=== PATIENT | female | born 1940 | race Caucasian/White ===

== ENCOUNTER 2021-03-17 12:41 | Emergency (ER) | payer OTHER ==
[~2021-03-17 12:41] MED LIST: ELAVIL25 MG PO; NORCO 5-325 TA1 EACH PO; PANTOPRAZOLE SO40 MG PO; ZANTAC150 MG PO
[2021-03-17] MEDS ORDERED: REMERON15 MG PO (13:41)
[2021-03-17 14:25] LABS: BILIRUBIN NEGATIVE (NEGATIVE); BLOOD TRACE-INTACT Ery/uL (NEGATIVE); CLARITY CLEAR (CLEAR); COLOR YELLOW (YELLOW); GLUCOSE (U) NORMAL (NORMAL); LEUKOCYTES 1+ Leu/uL (NEGATIVE); NITRITE NEGATIVE (NEGATIVE); PROTEIN TRACE (LOW) mg/dL (NEGATIVE); SPECIFIC GRAVITY >=1.030 (1.001-1.030); UROBILINOGEN 0.2 mg/dL (0.2-1.0); pH 5.5 (5.0-9.0)
[2021-03-17 14:33] LABS: URINARY RBC RARE
[2021-03-17 14:34] LABS: BACTERIA 2+
[2021-03-17 15:03] LABS: LACTIC ACID 1.4 mmol/L (0.4-1.9)
[2021-03-17 15:26] LABS: BASOPHIL 0.8 % (0-2); EOSINOPHIL 1.6 % (0-7); HCT 34.5 % (37.0-47.0); HGB 11.6 g/dl (12.5-16.0); LYMPHOCYTE 30.6 % (15-48); MCH 33.3 pg (25.0-31.0); MCHC 33.6 g/dL (32.0-36.0); MCV 99.1 fL (78.0-100.0); MONOCYTE 8.2 % (0-12); MPV 9.2 fL (6.0-9.5); NEUTROPHIL 58.5 % (41-80); NRBC 0; PLT 189 K/uL (150-400); RBC 3.48 M/uL (4.20-5.40); RDW 12.1 % (11.5-14.0); WBC 7.7 K/uL (4.0-10.5)
[2021-03-17 15:55] LABS: ALBUMIN 3.4 g/dL (3.4-5.0); BILIRUBIN - TOTAL 0.3 mg/dL (0.2-1.0); BUN/CREAT RATIO (CALC) 9.8 RATIO; CREATININE 2.14 mg/dL (0.51-0.95); GLOBULIN (CALCULATION) 3.2 g/dL; POTASSIUM 4.2 mmol/L (3.5-5.1); TOTAL PROTEIN 6.6 g/dL (6.4-8.2)
[2021-03-17] MEDS ORDERED: ACETAMINOPHEN-1 EAC1 PO (17:26)
[2021-03-17] MEDS ORDERED: CIPRO500 MG PO (17:26)
[2021-03-17] MEDS ORDERED: METRONIDAZOLE500 MG PO (17:36)
== END 2021-03-17 18:01 | disposition home or self-care (01) ==
LOC: FER 12:41
PROVIDERS: Nurse Practitioner Family
DX: K57.92 Diverticulitis of intestine, part unspecified, without perforation or abscess without bleeding (principal); N39.0 Urinary tract infection, site not specified; F01.50 Vascular dementia, unspecified severity, without behavioral disturbance, psychotic disturbance, mood disturbance, and anxiety; Z90.49 Acquired absence of other specified parts of digestive tract; Z88.2 Allergy status to sulfonamides; Z88.1 Allergy status to other antibiotic agents; Z88.0 Allergy status to penicillin
CPT/HCPCS: 36415; 80053; 81001; 83605; 85025; 87076; 87088; 87186; J7030

== ENCOUNTER 2022-04-25 18:30 | Emergency (ER) | payer OTHER ==
[~2022-04-25 18:30] MED LIST changes: +ACETAMINOPHEN-1 EAC1 PO; +CIPRO500 MG PO; +METRONIDAZOLE500 MG PO; +REMERON15 MG PO
[2022-04-25 19:59] LABS: BASOPHIL 0.7 % (0-2); EOSINOPHIL 1.6 % (0-7); HCT 38.1 % (37.0-47.0); LYMPHOCYTE 22.3 % (15-48); MCH 32.7 pg (25.0-31.0); MCHC 34.1 g/dL (32.0-36.0); MCV 95.7 fL (78.0-100.0); MONOCYTE 9.3 % (0-12); MPV 9.4 fL (6.0-9.5); NEUTROPHIL 65.7 % (41-80); NRBC 0; PLT 260 K/uL (150-400); RBC 3.98 M/uL (4.20-5.40); RDW 12.1 % (11.5-14.0); WBC 8.2 K/uL (4.0-10.5)
[2022-04-25 20:11] LABS: BILIRUBIN - TOTAL 0.3 mg/dL (0.2-1.0); BUN/CREAT RATIO (CALC) 13.9 RATIO; CREATININE 1.37 mg/dL (0.51-0.95); GLOBULIN (CALCULATION) 4.1 g/dL; POTASSIUM 3.7 mmol/L (3.5-5.1); TOTAL PROTEIN 7.1 g/dL (6.4-8.2)
[2022-04-25 21:38] LABS: BILIRUBIN NEGATIVE (NEGATIVE); BLOOD NEGATIVE Ery/uL (NEGATIVE); CLARITY CLEAR (CLEAR); COLOR YELLOW (YELLOW); GLUCOSE (U) NORMAL (NORMAL); LEUKOCYTES NEGATIVE Leu/uL (NEGATIVE); NITRITE NEGATIVE (NEGATIVE); PROTEIN NEGATIVE (NEGATIVE); UROBILINOGEN 0.2 mg/dL (0.2-1.0)
== END 2022-04-25 22:50 | disposition home or self-care (01) ==
LOC: FER 18:30
PROVIDERS: Emergency Medicine; Nurse Practitioner Family
DX: E86.0 Dehydration (principal); Z88.0 Allergy status to penicillin
CPT/HCPCS: 36415; 70450; 80053; 81003; 85025; 93005; J1100; J7030

== ENCOUNTER 2022-05-08 15:14 | Emergency (ER) | payer OTHER | END 2022-05-08 20:50 | disposition home or self-care (01) | LOC: FER 15:14 | DX: S32.018A Other fracture of first lumbar vertebra, initial encounter for closed fracture (principal); F03.90 Unspecified dementia, unspecified severity, without behavioral disturbance, psychotic disturbance, mood disturbance, and anxiety; Z88.0 Allergy status to penicillin; Z88.6 Allergy status to analgesic agent; W18.30XA Fall on same level, unspecified, initial encounter; Y92.009 Unspecified place in unspecified non-institutional (private) residence as the place of occurrence of the external cause | CPT/HCPCS: 72100; 72128; 72131 ==